=== PATIENT | male | born 1980 | race Caucasian/White ===

== ENCOUNTER 2019-03-16 18:35 | Emergency (ER) | payer SELFPAY ==
[~2019-03-16] VITALS: Ht 190.5 cm; Wt 104.3 kg
[2019-03-16 19:36] VITALS: BP 129/87
== END 2019-03-16 21:38 | disposition left against medical advice (07) ==
LOC: ER 18:37
DX: K08.89 Other specified disorders of teeth and supporting structures (principal); Z53.21 Procedure and treatment not carried out due to patient leaving prior to being seen by health care provider